=== PATIENT | male | born 1930 | race Caucasian/White ===

== ENCOUNTER 2018-06-25 18:52 | Inpatient (IN) | payer OTHER ==
[~2018-06-25] VITALS: Ht 177.8 cm; Wt 56.2 kg
[2018-06-25] MEDS ORDERED: COMPLEX B-1001 EACH (20:10)
[2018-07-03] MEDS ORDERED: MEGESTROL400 MG/10 PO (16:56)
== END 2018-07-03 20:01 | disposition home health service (06) | DRG 641 ==
LOC: ER 18:52 → SEC-K 06-26 08:56 → SURH 06-26 08:56
PROC: 3E0F7GC Introduction of Other Therapeutic Substance into Respiratory Tract, Via Natural or Artificial Opening (ICD-10-PCS; principal; 2018-06-26)
PROC: BB24ZZZ Computerized Tomography (CT Scan) of Bilateral Lungs (ICD-10-PCS; 2018-06-26)
PROC: 8E0ZXY6 Isolation (ICD-10-PCS; 2018-06-27)
PROC: 4A033R1 Measurement of Arterial Saturation, Peripheral, Percutaneous Approach (ICD-10-PCS; 2018-07-01)
DX: E86.0 Dehydration (principal); E44.0 Moderate protein-calorie malnutrition; C34.11 Malignant neoplasm of upper lobe, right bronchus or lung; C77.1 Secondary and unspecified malignant neoplasm of intrathoracic lymph nodes; R65.10 Systemic inflammatory response syndrome (SIRS) of non-infectious origin without acute organ dysfunction; E83.52 Hypercalcemia; J43.2 Centrilobular emphysema; E87.1 Hypo-osmolality and hyponatremia; D72.823 Leukemoid reaction; R09.02 Hypoxemia; B96.0 Mycoplasma pneumoniae [M. pneumoniae] as the cause of diseases classified elsewhere

== ENCOUNTER 2018-07-09 13:40 | Inpatient (IN) | payer OTHER ==
[~2018-07-09] VITALS: Ht 177.8 cm; Wt 79.8 kg
[~2018-07-09 13:40] MED LIST: COMPLEX B-1001 EACH; MEGESTROL400 MG/10 PO
[2018-07-14] MEDS ORDERED: MEGESTROL400 MG/10 PO (08:32)
[2018-07-14] MEDS ORDERED: APETIGEN L790 MG/15 PO (08:33)
== END 2018-07-14 15:55 | disposition other institution (70) | DRG 202 ==
LOC: ER 13:40 → MEDI 18:32
PROC: 4A033R1 Measurement of Arterial Saturation, Peripheral, Percutaneous Approach (ICD-10-PCS; 2018-07-09)
PROC: 3E0F7GC Introduction of Other Therapeutic Substance into Respiratory Tract, Via Natural or Artificial Opening (ICD-10-PCS; 2018-07-09)
PROC: 3E0336Z Introduction of Nutritional Substance into Peripheral Vein, Percutaneous Approach (ICD-10-PCS; 2018-07-09)
PROC: 02HV33Z Insertion of Infusion Device into Superior Vena Cava, Percutaneous Approach (ICD-10-PCS; principal; 2018-07-11)
DX: J20.9 Acute bronchitis, unspecified (principal); E44.0 Moderate protein-calorie malnutrition; C34.11 Malignant neoplasm of upper lobe, right bronchus or lung; C77.1 Secondary and unspecified malignant neoplasm of intrathoracic lymph nodes; E86.0 Dehydration; E83.52 Hypercalcemia; T38.0X5A Adverse effect of glucocorticoids and synthetic analogues, initial encounter; R73.9 Hyperglycemia, unspecified; Z74.01 Bed confinement status